=== PATIENT | male | born 1945 ===

== ENCOUNTER 2021-01-21 04:39 | Day surgery (SDC) | payer OTHER | END 2021-01-21 23:03 | disposition home or self-care (01) | LOC: WOUND 04:39 | DX: M27.2 Inflammatory conditions of jaws (principal); Z92.3 Personal history of irradiation; I10 Essential (primary) hypertension | CPT/HCPCS: G0463 ==

== ENCOUNTER 2021-02-09 03:13 | Day surgery (SDC) | payer OTHER | END 2021-02-09 23:02 | disposition home or self-care (01) | LOC: HBO 03:13 | DX: M27.2 Inflammatory conditions of jaws (principal); Z92.3 Personal history of irradiation | CPT/HCPCS: G0277 ==

== ENCOUNTER 2021-02-10 03:02 | Day surgery (SDC) | payer OTHER | END 2021-02-10 23:13 | disposition home or self-care (01) | LOC: HBO 03:02 | DX: M27.2 Inflammatory conditions of jaws (principal); Z92.3 Personal history of irradiation | CPT/HCPCS: G0277 ==

== ENCOUNTER 2021-02-11 02:00 | Day surgery (SDC) | payer OTHER | END 2021-02-11 23:13 | disposition home or self-care (01) | LOC: HBO 02:00 | DX: M27.2 Inflammatory conditions of jaws (principal); Z92.3 Personal history of irradiation | CPT/HCPCS: G0277 ==

== ENCOUNTER 2021-02-12 01:04 | Day surgery (SDC) | payer OTHER | END 2021-02-12 23:53 | disposition home or self-care (01) | LOC: HBO 01:04 | DX: M27.2 Inflammatory conditions of jaws (principal); Y84.2 Radiological procedure and radiotherapy as the cause of abnormal reaction of the patient, or of later complication, without mention of misadventure at the time of the procedure | CPT/HCPCS: G0277 ==

== ENCOUNTER 2021-02-13 01:37 | Day surgery (SDC) | payer OTHER | END 2021-02-13 12:00 | disposition home or self-care (01) | LOC: HBO 01:37 | DX: M27.2 Inflammatory conditions of jaws (principal); Z92.3 Personal history of irradiation | CPT/HCPCS: G0277 ==

== ENCOUNTER 2021-02-16 04:13 | Day surgery (SDC) | payer OTHER | END 2021-02-16 12:00 | disposition home or self-care (01) | LOC: HBO 04:13 | DX: M27.2 Inflammatory conditions of jaws (principal); Z92.3 Personal history of irradiation | CPT/HCPCS: G0277 ==

== ENCOUNTER 2021-02-17 05:50 | Day surgery (SDC) | payer OTHER | END 2021-02-17 22:55 | disposition home or self-care (01) | LOC: HBO 05:50 | DX: M27.2 Inflammatory conditions of jaws (principal); Z92.3 Personal history of irradiation | CPT/HCPCS: G0277 ==

== ENCOUNTER 2021-02-18 00:29 | Day surgery (SDC) | payer OTHER | END 2021-02-18 23:26 | disposition home or self-care (01) | LOC: HBO 00:29 | DX: M27.2 Inflammatory conditions of jaws (principal); Z92.3 Personal history of irradiation | CPT/HCPCS: G0277 ==

== ENCOUNTER 2021-02-19 01:09 | Day surgery (SDC) | payer OTHER | END 2021-02-20 23:25 | disposition home or self-care (01) | LOC: HBO 01:09 | DX: M27.2 Inflammatory conditions of jaws (principal); Z92.3 Personal history of irradiation | CPT/HCPCS: G0277 ==

== ENCOUNTER 2021-02-23 02:49 | Day surgery (SDC) | payer OTHER | END 2021-02-23 22:54 | disposition home or self-care (01) | LOC: HBO 02:49 | DX: M27.2 Inflammatory conditions of jaws (principal); Z92.3 Personal history of irradiation | CPT/HCPCS: G0277 ==

== ENCOUNTER 2021-02-24 01:13 | Day surgery (SDC) | payer OTHER | END 2021-02-24 23:06 | disposition home or self-care (01) | LOC: HBO 01:13 | DX: M27.2 Inflammatory conditions of jaws (principal); Z92.3 Personal history of irradiation | CPT/HCPCS: G0277 ==

== ENCOUNTER 2021-02-25 02:51 | Day surgery (SDC) | payer OTHER | END 2021-02-25 23:06 | disposition home or self-care (01) | LOC: HBO 02:51 | DX: M27.2 Inflammatory conditions of jaws (principal) | CPT/HCPCS: G0277 ==

== ENCOUNTER 2021-02-26 01:21 | Day surgery (SDC) | payer OTHER | END 2021-02-26 23:32 | disposition home or self-care (01) | LOC: HBO 01:21 | DX: M27.2 Inflammatory conditions of jaws (principal); Z92.3 Personal history of irradiation | CPT/HCPCS: G0277 ==

== ENCOUNTER 2021-02-27 05:09 | Day surgery (SDC) | payer OTHER | END 2021-02-27 23:56 | disposition home or self-care (01) | LOC: HBO 05:09 | DX: M27.2 Inflammatory conditions of jaws (principal); Z92.3 Personal history of irradiation | CPT/HCPCS: G0277 ==

== ENCOUNTER 2021-03-02 03:43 | Day surgery (SDC) | payer OTHER | END 2021-03-02 22:46 | disposition home or self-care (01) | LOC: HBO 03:43 | DX: M27.2 Inflammatory conditions of jaws (principal); Z92.3 Personal history of irradiation | CPT/HCPCS: G0277 ==

== ENCOUNTER 2021-03-03 04:18 | Day surgery (SDC) | payer OTHER | END 2021-03-03 12:00 | disposition home or self-care (01) | LOC: HBO 04:18 | DX: M27.2 Inflammatory conditions of jaws (principal); Z92.3 Personal history of irradiation | CPT/HCPCS: G0277 ==

== ENCOUNTER 2021-03-04 05:31 | Day surgery (SDC) | payer OTHER | END 2021-03-04 23:20 | disposition home or self-care (01) | LOC: HBO 05:31 | DX: M27.2 Inflammatory conditions of jaws (principal); Z92.3 Personal history of irradiation; Y84.2 Radiological procedure and radiotherapy as the cause of abnormal reaction of the patient, or of later complication, without mention of misadventure at the time of the procedure | CPT/HCPCS: G0277 ==

== ENCOUNTER 2021-03-05 02:00 | Day surgery (SDC) | payer OTHER | END 2021-03-05 23:04 | disposition home or self-care (01) | LOC: HBO 02:00 | DX: M27.2 Inflammatory conditions of jaws (principal); Y84.2 Radiological procedure and radiotherapy as the cause of abnormal reaction of the patient, or of later complication, without mention of misadventure at the time of the procedure | CPT/HCPCS: G0277 ==

== ENCOUNTER 2021-03-16 00:55 | Day surgery (SDC) | payer OTHER | END 2021-03-16 23:23 | disposition home or self-care (01) | LOC: HBO 00:55 | DX: M27.2 Inflammatory conditions of jaws (principal); Z92.3 Personal history of irradiation | CPT/HCPCS: G0277 ==

== ENCOUNTER 2021-03-17 02:22 | Day surgery (SDC) | payer OTHER | END 2021-03-17 23:17 | disposition home or self-care (01) | LOC: HBO 02:22 | DX: M27.2 Inflammatory conditions of jaws (principal); Z92.3 Personal history of irradiation | CPT/HCPCS: G0277 ==

== ENCOUNTER 2021-04-13 03:16 | Day surgery (SDC) | payer OTHER | END 2021-04-13 23:43 | disposition home or self-care (01) | LOC: HBO 03:16 | DX: M27.2 Inflammatory conditions of jaws (principal); Z92.3 Personal history of irradiation | CPT/HCPCS: G0277 ==

== ENCOUNTER 2021-04-14 00:46 | Day surgery (SDC) | payer OTHER | END 2021-04-14 01:14 | disposition home or self-care (01) | LOC: HBO 00:46 | DX: M27.2 Inflammatory conditions of jaws (principal); Y84.2 Radiological procedure and radiotherapy as the cause of abnormal reaction of the patient, or of later complication, without mention of misadventure at the time of the procedure | CPT/HCPCS: G0277 ==

== ENCOUNTER 2021-04-15 03:05 | Day surgery (SDC) | payer OTHER | END 2021-04-16 02:59 | disposition home or self-care (01) | LOC: HBO 03:05 | DX: M27.2 Inflammatory conditions of jaws (principal); Z92.3 Personal history of irradiation | CPT/HCPCS: G0277 ==

== ENCOUNTER 2021-04-16 03:52 | Day surgery (SDC) | payer OTHER | END 2021-04-16 23:00 | disposition home or self-care (01) | LOC: HBO 03:52 | DX: M27.2 Inflammatory conditions of jaws (principal); Z92.3 Personal history of irradiation | CPT/HCPCS: G0277 ==

== ENCOUNTER 2021-04-17 00:35 | Day surgery (SDC) | payer OTHER | END 2021-04-17 23:43 | disposition home or self-care (01) | LOC: HBO 00:35 | DX: M27.2 Inflammatory conditions of jaws (principal); Y84.2 Radiological procedure and radiotherapy as the cause of abnormal reaction of the patient, or of later complication, without mention of misadventure at the time of the procedure | CPT/HCPCS: G0277 ==

== ENCOUNTER 2021-04-20 02:59 | Day surgery (SDC) | payer OTHER | END 2021-04-20 12:00 | disposition home or self-care (01) | LOC: HBO 02:59 | DX: M27.2 Inflammatory conditions of jaws (principal); Z92.3 Personal history of irradiation; Y84.2 Radiological procedure and radiotherapy as the cause of abnormal reaction of the patient, or of later complication, without mention of misadventure at the time of the procedure | CPT/HCPCS: G0277 ==

== ENCOUNTER 2021-04-21 05:11 | Day surgery (SDC) | payer OTHER | END 2021-04-21 22:55 | disposition home or self-care (01) | LOC: HBO 05:11 | DX: M27.2 Inflammatory conditions of jaws (principal); Z92.3 Personal history of irradiation | CPT/HCPCS: G0277 ==

== ENCOUNTER 2021-04-22 00:35 | Day surgery (SDC) | payer OTHER | END 2021-04-22 23:38 | disposition home or self-care (01) | LOC: HBO 00:35 | DX: M27.2 Inflammatory conditions of jaws (principal); Z92.3 Personal history of irradiation | CPT/HCPCS: G0277 ==

== ENCOUNTER 2021-04-23 03:47 | Day surgery (SDC) | payer OTHER | END 2021-04-23 22:59 | disposition home or self-care (01) | LOC: HBO 03:47 | DX: M27.2 Inflammatory conditions of jaws (principal); Y84.2 Radiological procedure and radiotherapy as the cause of abnormal reaction of the patient, or of later complication, without mention of misadventure at the time of the procedure | CPT/HCPCS: G0277 ==

== ENCOUNTER 2021-04-24 01:59 | Day surgery (SDC) | payer OTHER | END 2021-04-24 12:00 | disposition home or self-care (01) | LOC: HBO 01:59 | DX: M27.2 Inflammatory conditions of jaws (principal); Y84.2 Radiological procedure and radiotherapy as the cause of abnormal reaction of the patient, or of later complication, without mention of misadventure at the time of the procedure | CPT/HCPCS: G0277 ==

== ENCOUNTER 2021-04-24 02:02 | Day surgery (SDC) | payer OTHER | END 2021-04-24 12:00 | disposition home or self-care (01) | LOC: WOUND 02:02 | DX: M27.2 Inflammatory conditions of jaws (principal); I10 Essential (primary) hypertension; Y84.2 Radiological procedure and radiotherapy as the cause of abnormal reaction of the patient, or of later complication, without mention of misadventure at the time of the procedure; Z85.89 Personal history of malignant neoplasm of other organs and systems | CPT/HCPCS: G0463 ==

== ENCOUNTER 2023-08-24 13:11 | Day surgery (SDC) | payer OTHER ==
[~2023-08-24] VITALS: Ht 167.6 cm; Wt 79.3 kg
[~2023-08-24 13:11] MED LIST: Balanced Salt Epinephrine Irrigation Solution 500 mL IR SCH; Lidocaine HCl/Pf 1% 5 ML VIAL XX SCH; Moxifloxacin HCL 0.5 MG/0.1 ML 0.4MLSYR RIGHTEYE SCH; NS 500 ML IV ONE; PHENYLEPHRINE\\TROPICAMIDE\\TETRACAINE OPHTHALMIC DILATING SOLN RIGHTEYE PRN; Povidone-Iodine 450 DROP/30 ML Solution RIGHTEYE SCH
[2023-08-24] MEDS ORDERED: Lisinopril-Hct1 EAC4 PO (14:14)
[2023-08-24] MEDS ORDERED: ALLERGY RELIEF5 M1 PO (14:14)
[2023-08-24] MEDS ORDERED: VITAMIN B12 (14:15)
[2023-08-24] MEDS ORDERED: VITAMIN D3 (14:15)
--- NOTE | 2023-08-24 14:26 | NUR ---
08/24/23 1426 Yodit Vazquez AT 1414 PLEDGET AT 1416
[2023-08-24] MEDS ORDERED: NS 500 ML IV ONE (14:33)
[2023-08-24] MEDS ORDERED: FentaNYL Citrate 50 MCG/ML 2 ML Injection ONE (14:37)
[2023-08-24] MEDS ORDERED: Midazolam HCl 1MG / ML 2ML Vial ONE (14:38)
[2023-08-24] MEDS ORDERED: Tetracaine HCl 0.5% Opth Soln 15 ml RIGHTEYE ONE (14:57)
[2023-08-24 15:17] VITALS: BP 111/69
--- NOTE | 2023-08-24 15:33 | NUR ---
08/24/23 1533 WILBER JACKSON IN AT CHAIR /SIDE.
== END 2023-08-24 15:43 | disposition home or self-care (01) ==
LOC: ORSCSDS 13:11
PROVIDERS: Student in an Organized Health Care Education/Training Program
PROC: 08RJ3JZ Replacement of Right Lens with Synthetic Substitute, Percutaneous Approach (ICD-10-PCS; principal; 2023-08-24 14:30)
DX: H25.813 Combined forms of age-related cataract, bilateral (principal); I10 Essential (primary) hypertension; E78.5 Hyperlipidemia, unspecified; H35.362 Drusen (degenerative) of macula, left eye; Z79.899 Other long term (current) drug therapy
CPT/HCPCS: J2250; J3010; J7040; V2632

== ENCOUNTER 2023-09-07 13:15 | Day surgery (SDC) | payer OTHER ==
[~2023-09-07] VITALS: Ht 167.6 cm; Wt 79.9 kg
[~2023-09-07 13:15] MED LIST changes: +ALLERGY RELIEF5 M1 PO; +Lisinopril-Hct1 EAC4 PO; +Moxifloxacin HCL 0.5 MG/0.1 ML 0.4MLSYR LEFTEYE SCH; -Moxifloxacin HCL 0.5 MG/0.1 ML 0.4MLSYR RIGHTEYE SCH; +PHENYLEPHRINE\\TROPICAMIDE\\TETRACAINE OPHTHALMIC DILATING SOLN LEFTEYE PRN; -PHENYLEPHRINE\\TROPICAMIDE\\TETRACAINE OPHTHALMIC DILATING SOLN RIGHTEYE PRN; +Povidone-Iodine 450 DROP/30 ML Solution LEFTEYE SCH; -Povidone-Iodine 450 DROP/30 ML Solution RIGHTEYE SCH; +VITAMIN B12; +VITAMIN D3
--- NOTE | 2023-09-07 13:38 | NUR ---
09/07/23 1338 Yodit Vazquez AT 1333 PLEDGET AT 1334
[2023-09-07] MEDS ORDERED: NS 500 ML IV ONE (13:56)
[2023-09-07] MEDS ORDERED: FentaNYL Citrate 50 MCG/ML 2 ML Injection ONE (14:02)
[2023-09-07] MEDS ORDERED: Midazolam HCl 1MG / ML 2ML Vial ONE (14:10)
[2023-09-07] MEDS ORDERED: Tetracaine HCl 0.5% Opth Soln 15 ml LEFTEYE ONE (14:41)
[2023-09-07 15:00] VITALS: BP 126/80
== END 2023-09-07 15:14 | disposition home or self-care (01) ==
LOC: ORSCSDS 13:15
PROVIDERS: Student in an Organized Health Care Education/Training Program
PROC: 08RK3JZ Replacement of Left Lens with Synthetic Substitute, Percutaneous Approach (ICD-10-PCS; principal; 2023-09-07 14:30)
DX: H25.812 Combined forms of age-related cataract, left eye (principal); H52.202 Unspecified astigmatism, left eye; Z96.1 Presence of intraocular lens; I10 Essential (primary) hypertension; E78.5 Hyperlipidemia, unspecified; Z79.899 Other long term (current) drug therapy
CPT/HCPCS: J2250; J3010; J7040; V2632